=== PATIENT | male | born 1935 | race Hispanic/Latino ===

== ENCOUNTER → 2018-04-19 | Day surgery (SDC) | payer MEDICARE, OTHER ==
[~2018-04-19] MED LIST: ASPIRIN81 M1 PO; ATENOLOL25 MG PO; ATORVASTATIN CA20 MG PO; B-12 DOTS500 MCG PO; ENALAPRIL MALEA20 MG PO; FAMOTIDINE40 MG PO; FENTANYL CITRATE/PF 100MCG/2 ML INJ ONE; FEXOFENADINE H180 MG PO; FISH OIL 1,2001 EAC1 PO; FLOMAX0.4 MG PO; FLOVENT DISKUS50 MCG; GABAPENTIN300 MG PO; LANTUS100 UNIT/1 SQ; LEVEMIR100 UNIT/1 SC; MECLIZINE HCL12.5 MG PO; METFORMIN HCL1000 MG PO; MIDAZOLAM HCL 2 MG/2 ML VIAL ONE; NAPROXEN SODIU550 MG PO; NEXIUM40 MG PO; NOVOLOG100 UNIT/1 SQ; OR PHACO EYE KIT ONE; PANTOPRAZOLE SO40 MG PO; PAROXETINE HCL30 MG PO; PREOP PHACO EYE KIT ONE
--- OUTSIDE RECORDS SUMMARY | 2018-04-19 09:58 | XMS REPORT | Clinical Summary ---
Author Author Anibal oCrreaist Organization [facility] Address Unknown Phone Unavailable Care Team Providers Care Internal Sales Engineer Name Role Phone PCP Unavailable Allergies Not on File Medications Not on file Active Problems Not on file Social History Date Tobacco Use Types Packs/Day Years Used Never Assessed Sex Assigned at Date Recorded Not on file Industry Job Start Date Occupation Not on file Not on file Not on file Travel End Travel History Travel Start No recent travel history available. Last Filed Vital Signs Not on file Plan of Treatment Health Maintenance Due Date Last Done Comments SHINGLES VACCINES (1 of 1984 2) PNEUMOCOCCAL 1999 POLYSACCHARIDE VACCINE AGE 65 AND OVER PNEUMOCOCCAL-13 1999 INFLUENZA VACCINE 12/01/2017 Results Not on fileafter 04/18/2017 Insurance Payer Benefit Subscriber ID Type Phone Address Plan / Group MEDICARE MEDICARE xxxxxxxxxx Medicare [place] PART A [place] B CIGNA CIGNA xxxxxxxxxxx HMO HMO/POS (Home) [place] [address] Advance Directives Patient has advance care planning documents on file. For more information, katherin see contact: Anibal Godoy [address] [place] [address]
--- OUTSIDE RECORDS SUMMARY | 2018-04-19 09:58 | XMS REPORT | Summary of Care ---
Author Organization Unknown Address Unknown Phone Unavailable Encounter HQ Encntr_darlene([facility]) [id number] Date(s): 04/03/14 - 04/03/14 [facility] Outpatient Imaging - [address] [address]- [place] Discharge Disposition: Home Physician Attending: Zuhair Herrera MD Reason for Visit 719.40 - JOINT PAIN-UNSP Problem List No data available for this section Allergies, Adverse Reactions, Alerts No data available for this section Medications No data available for this section Medications Administered During Your Visit No data available for this section Immunizations No data available for this section
--- OUTSIDE RECORDS SUMMARY | 2018-04-19 09:58 | XMS REPORT | Summary of Care ---
Author Author [facility] Outpatient Imaging [facility] Outpatient Imaging [facility] Address Unknown Phone Unavailable Encounter HQ Encntr_alias(FIN) [id number] Date(s): 07/03/16 - 07/03/16 [facility] Outpatient Imaging [facility] [address] [facility], [address] [place], [place] [address] [phone] Discharge Disposition: Home or Self Care Attending Physician: Zuhair Herrera MD Vital Signs No data available for this section Problem List No data available for this section Allergies, Adverse Reactions, Alerts No data available for this section Medications No data available for this section Results No data available for this section Immunizations No data available for this section Procedures No data available for this section Social History No data available for this section Assessment and Plan No data available for this section
--- OUTSIDE RECORDS SUMMARY | 2018-04-19 09:58 | XMS REPORT | Summary of Care ---
Author Author [facility] Outpatient Imaging - [place] Organization [facility] Outpatient Imaging - [place] Address Unknown Phone Unavailable Encounter HQ Encntr_alias(FIN) [id number] Date(s): 07/15/16 - 07/15/16 [facility] Outpatient Imaging - [place] [address] [place] [phone] Discharge Disposition: Home or Self Care Attending [...]
--- OUTSIDE RECORDS SUMMARY | 2018-04-19 09:58 | XMS REPORT | Continuity of Care Document ---
Author Author [facility] Organization Interface Address Unknown Phone Unavailable Problems Problem Status Onset Date Classification Date Reported Comments Source K44.9 - DIAPHRAGMATIC HERNIA WITHOUT O Active 07/02/2016 [facility] 786.2 - COUGH Active 11/14/2014 [facility] Medications Medication Details Route Status Patient Instructions Ordering Provider Order Date Source Allergies, Adverse Reactions, Alerts Substance Category Reaction Severity Reaction type Status Date Reported Comments Source Immunizations Immunization Date Given Site Status Last Updated Comments Source Results Order Name Results Value Reference Range Date Interpretation Comments Source Abdomen wo contrast MRI Abdomen wo contrast MRI Within the discussion portion of this exam, it indicates that "There is an enhancing rounded mass seen within the left lateral aspect of the liver highly suspicious for primary neoplasm." Note that the mass is located within the lateral aspect of the left kidney, correlating with the 2nd impression. Findings discussed with Dr. Herrera on 07/22/2016 at 1340 hours. Exam: MRI and MRCP of the abdomen with and without contrast Reason for Exam: K76.0 Fatty (change of) liver, not elsewhere classified Comparison Exam: Ultrasound 07/03/2016 Technique: Multiplanar and multisequence imaging was performed of the abdomen. T1 and T2-weighted images were acquired with and without injection of 20 cc Dotarem IV. Discussion: Large left-sided diaphragmatic hernia. 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 The liver appears slightly enlarged. Although there was suspicion for fatty filtration of the liver on recent ultrasound exam, the liver does not appear fatty on current exam. Minimal surface nodularity is again seen. Portal venous system is patent. The gallbladder and biliary ductal system are unremarkable. Adrenal glands, pancreas, and spleen are unremarkable. Right kidney is unremarkable. There is an enhancing rounded mass seen within the left lateral aspect of the liver highly suspicious for primary neoplasm. It measures 4.1 x 3.6 cm on series 9, image 82. The barely extends to the renal hilum. No hydronephrosis or hydroureter. No evidence seen for involvement of the left renal vein. No appreciable lymphadenopathy. Diastases seen of the rectus abdominis muscles resulting in a large ventral hernia. Impression: 1. No focal masses seen within the liver. The liver does not appear fatty on today's exam. 2. 4.1 cm mass originating from the left kidney measuring up to 4.1 cm highly suspicious for primary neoplasm. 3. Large left-sided diaphragmatic hernia. 07/15/2016 - - Read by: Morgan Beaver MD Dictated Date/time: 07/22/16 13:40 Electronically Signed by: Morgan Beaver MD 07/22/16 13:42 FINAL REPORT - - Read by: Morgan Beaver MD Dictated Date/time: 07/15/16 16:52 Electronically Signed by: Morgan Beaver MD 07/15/16 17:11 FINAL REPORT [facility] [place] Abdomen w/wo contrast MRI Abdomen w/wo contrast MRI Within the discussion portion of this exam, it indicates that "There is an enhancing rounded mass seen within the left lateral aspect of the liver highly suspicious for primary neoplasm." Note that the mass is located within the lateral aspect of the left kidney, correlating with the 2nd impression. Findings discussed with Dr. Herrera on 07/22/2016 at 1340 hours. Exam: MRI and MRCP of the abdomen with and without contrast Reason for Exam: K76.0 Fatty (change of) liver, not elsewhere classified Comparison Exam: Ultrasound 07/03/2016 Technique: Multiplanar and multisequence imaging was performed of the abdomen. T1 and T2-weighted images were acquired with and without injection of 20 cc Dotarem IV. Discussion: Large left-sided diaphragmatic hernia. 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 The liver appears slightly enlarged. Although there was suspicion for fatty filtration of the liver on recent ultrasound exam, the liver does not appear fatty on current exam. Minimal surface nodularity is again seen. Portal venous system is patent. The gallbladder and biliary ductal system are unremarkable. Adrenal glands, pancreas, and spleen are unremarkable. Right kidney is unremarkable. There is an enhancing rounded mass seen within the left lateral aspect of the liver highly suspicious for primary neoplasm. It measures 4.1 x 3.6 cm on series 9, image 82. The barely extends to the renal hilum. No hydronephrosis or hydroureter. No evidence seen for involvement of the left renal vein. No appreciable lymphadenopathy. Diastases seen of the rectus abdominis muscles resulting in a large ventral hernia. Impression: 1. No focal masses seen within the liver. The liver does not appear fatty on today's exam. 2. 4.1 cm mass originating from the left kidney measuring up to 4.1 cm highly suspicious for primary neoplasm. 3. Large left-sided diaphragmatic hernia. 07/15/2016 - - Read by: Morgan Beaver MD Dictated Date/time: 07/22/16 13:40 Electronically Signed by: Morgan Beaver MD 07/22/16 13:42 FINAL REPORT - - Read by: Morgan Beaver MD Dictated Date/time: 07/15/16 16:52 Electronically Signed by: Morgan Beaver MD 07/15/16 17:11 FINAL REPORT KENZIE [place] Liver US Liver US EXAM: US ABDOMEN LIMITED DATE: 07/03/2016 10:40 AM [facility]AREHOU[facility] ORDER FILLER INDICATION: K44.9 Diaphragmatic hernia without obstruction or gangrene ADDITIONAL INFORMATION: Patient reported history of colon cancer COMPARISON: None. TECHNIQUE: Multiplanar grayscale and color Doppler ultrasound of the right upper quadrant. FINDINGS: Liver: Craniocaudal length: 20.22 cm. Echogenicity: Diffusely increased Surface nodularity: Minimal surface nodularity may represent chronic hepatocellular disease versus early cirrhosis. Mass (size and location): None. Portal vein: Normal. Bile ducts: Common bile duct diameter: 0.4 cm. Intrahepatic ducts: Mild intrahepatic ductal dilation is noted within the left hepatic lobe. Gallbladder: Normal. Gallstones: None. Gallbladder sludge: None. Gallbladder wall: 0.3 cm. Pericholecystic fluid: None. Sonographic Ga sign: Absent. Pancreas: Head and uncinate process: Normal. Body and tail: Not seen. Right kidney: Hydronephrosis: None. Size: 10 point 4 x 4 0.9 x 4.9 cm. Echogenicity: Normal. Mass/Stone/Cyst (size and location): None. Ascites: None. IMPRESSION: 1. Mild, asymmetric left intrahepatic biliary ductal dilation. Particularly given the history of colon cancer, would recommend further evaluation with MRI liver protocol with and without contrast and MRCP. 2. Diffusely increased hepatic echogenicity with minimal surface nodularity may represent hepatic steatosis or chronic hepatocellular disease, with possible early cirrhosis. 3. Hepatomegaly. 07/03/2016 - - Read by: Heidi Lombardo MD Dictated Date/time: 07/03/16 11:34 Electronically Signed by: Heidi Lombardo MD 07/03/16 11:46 FINAL REPORT [facility] Chest 2 views DX Chest 2 views DX EXAM: XR CHEST 2 VIEWS DATE: 11/14/2014 at 1408 hours. INDICATION: Cough. ADDITIONAL INFORMATION: None. COMPARISON: None. TECHNIQUE: Two radiographs provided for interpretation including frontal and lateral views. FINDINGS: Air-fluid levels the mediastinum in keeping with moderately large hiatal hernia. An azygos lobe is incidentally noted. Mild lung parenchymal scarring is identified. Lungs, airway and pleura are otherwise clear. Heart, mediastinum and eva have normal size and contours. There is generalized osteopenia and degenerative changes of the thoracic spine. No significant osseous or soft tissue abnormality otherwise noted. IMPRESSION: 1. Moderately large hiatal hernia. 2. Mild lung parenchymal scarring. 3. Azygos lobe as an anatomic variant. 4. Osteopenia and degenerative changes of the thoracic spine. Interpreted by Magno Vasques MD. 11/14/2014 - - Read by: Magno Vasques MD Dictated Date/time: 11/15/14 08:38 Electronically Signed by: Magno Vasques MD 11/15/14 08:40 FINAL REPORT [facility] Knee 3 Views Bilateral DX Knee 3 Views Bilateral DX BILATERAL KNEE SERIES CLINICAL HISTORY: Bilateral knee pain. COMPARISON IMAGING: None. FINDINGS: 7 views of the knees were submitted for interpretation. Joint spaces appear preserved. There is no fracture or dislocation. Soft tissues are unremarkable. No obvious joint effusion or suspicious radiopaque foreign body. IMPRESSION: No significant abnormality. 04/03/2014 - - Read by: Fariba Cannon DO Dictated Date/time: 04/03/14 10:40 Electronically Signed by: Fariba Cannon DO 04/03/14 10:43 FINAL REPORT [facility] [place] Vital Signs Vital Sign Value Date Comments Source Encounters Location Location Details Encounter Type Encounter Number Reason For Visit Attending Provider ADM Date DC Date Status Source [facility] Outpatient Imaging - [place] [facility] [id number] Zuhair Herrera 04/03/2014 04/04/2014 O[facility] Outpatient Imaging - [place] [facility] [id number] Zuhair Herrera 11/14/2014 11/15/2014 [facility] Outpatient Imaging - [place] [facility] [id number] Zuhair Herrera 07/03/2016 07/04/2016 [facility] Outpatient Imaging - [place] Out[facility] [id number] Zuhair Herrera 07/15/2016 07/16/2016 [facility] [place] Procedures Procedure Code Date Perfomer Comments Source
--- OUTSIDE RECORDS SUMMARY | 2018-04-19 09:58 | XMS REPORT ---
Author [facility] Address Unknown Phone Unavailable Care Team Providers Care Fixture Builder Name Role Phone Unavailable Unavailable Payers Payer Name Policy Type Policy Number Effective Date Expiration Date Problems This patient has no known problems. Allergies, Adverse Reactions, Alerts Allergy Name Allergy Type Status Severity Reaction(s) Onset Date Inactive Date Treating Clinician Comments No Known Allergies DA Active U 2016-08-07 00:00:00 Medications This patient has no known medications.
[2018-04-19 12:46] VITALS: BP 116/59
== END | disposition home or self-care (01) ==
LOC: OR 09:56
PROVIDERS: ATTEND Ophthalmology
DX: H25.12 Age-related nuclear cataract, left eye (principal); E11.40 Type 2 diabetes mellitus with diabetic neuropathy, unspecified; Z79.4 Long term (current) use of insulin; Z79.84 Long term (current) use of oral hypoglycemic drugs; E78.5 Hyperlipidemia, unspecified; K21.9 Gastro-esophageal reflux disease without esophagitis; K44.9 Diaphragmatic hernia without obstruction or gangrene; N40.0 Benign prostatic hyperplasia without lower urinary tract symptoms; I10 Essential (primary) hypertension; F41.9 Anxiety disorder, unspecified; Z79.82 Long term (current) use of aspirin; Z85.038 Personal history of other malignant neoplasm of large intestine; Z92.21 Personal history of antineoplastic chemotherapy; Z93.3 Colostomy status
CPT/HCPCS: 36415; 66984; 82948; J2250; V2632

== ENCOUNTER → 2018-05-17 | Day surgery (SDC) | payer MEDICARE, OTHER ==
--- OUTSIDE RECORDS SUMMARY | 2018-05-17 11:06 | XMS REPORT | Clinical Summary ---
Author Author Anibal [facility] Address Unknown Phone Unavailable Care Team Providers Care Center Medical Director Name Role Phone PCP Unavailable Allergies Not [...] INFLUENZA VACCINE 12/01/2017 Results Not on fileafter 05/16/2017 Insurance Payer Benefit Subscriber ID Type Phone Address Plan / Group MEDICARE MEDICARE xxxxxxxxxx Medicare [place], [place] PART A [place] B CIGNA CIGNA xxxxxxxxxxx HMO HMO/POS (Home) [place] [address] Advance Directives Patient has advance care planning documents on file. For more information, katherin see contact: Anibal Godoy [address] [place] [address]
[2018-05-17 14:25] VITALS: BP 117/62
== END | disposition home or self-care (01) ==
LOC: OR 10:49
PROVIDERS: ATTEND Ophthalmology
DX: H25.11 Age-related nuclear cataract, right eye (principal); I10 Essential (primary) hypertension; E11.40 Type 2 diabetes mellitus with diabetic neuropathy, unspecified; Z79.4 Long term (current) use of insulin; Z79.84 Long term (current) use of oral hypoglycemic drugs; E78.5 Hyperlipidemia, unspecified; K21.9 Gastro-esophageal reflux disease without esophagitis; F41.9 Anxiety disorder, unspecified; N40.0 Benign prostatic hyperplasia without lower urinary tract symptoms; Z79.82 Long term (current) use of aspirin; Z85.038 Personal history of other malignant neoplasm of large intestine; Z85.528 Personal history of other malignant neoplasm of kidney
CPT/HCPCS: 36415; 82948; J2250; V2632